=== PATIENT | female | born 1990 | race Caucasian/White ===

== ENCOUNTER 2017-04-12 13:32 | Emergency (ER) | payer BC ==
[2017-04-12 13:44] VITALS: BP 135/98
[2017-04-12] MEDS ORDERED: cefTRIAXone 1 GM, Lidocaine 1% 2.1 ML IM ONE ×2 (14:26)
--- NOTE | 2017-04-12 14:33 | EDM.PDOC ---
ED HPI GENERAL MEDICAL PROBLEM - General Chief Complaint: General Stated Complaint: MASTITIS (RT BREAST) Time Seen by Provider: 04/12/17 14:15 Source of Information: Reports: Patient History Limitations: Reports: No Limitations - History of Present Illness INITIAL COMMENTS - FREE TEXT/NARRATIVE: Patient presents today with complaints of right breast pain, redness and firmness since last night with fevers and chills. Sydnee reports she is currently using the breast pump for breast milk. Her daughter who is 3 months old, was premature and does not have a strong sucking reflex. Onset: Sudden Onset Date: 04/11/17 Quality: Reports: Ache, Dull Severity: Moderate Improves with: Reports: None Associated Symptoms: Reports: Fever/Chills, Malaise Treatments F[employer]: Reports: Acetaminophen, Other (see below) (She tried pumping. 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: Musculoskeletal History: Reports: Fracture Neurological History: Reports: Other (See Below) Other Neuro History: hx of fractured vertebrae - Past Surgical History Respiratory Surgical History: Reports: Other (See Below) Other Respiratory Surgeries/Procedures: chest tube Female Surgical History: Reports: Section Social & Family History - Tobacco Use Smoking Status *Q: Never Smoker - Recreational Drug Use Recreational Drug Use: No ED ROS GENERAL - Review of Systems Review Of Systems: See Below Constitutional: Reports: Fever, Chills, Malaise HEENT: Reports: No Symptoms Respiratory: Denies: Shortness of Breath, Cough, Sputum Cardiovascular: Denies: Dyspnea on Exertion, Edema, Lightheadedness, Palpitations, Syncope Endocrine: Reports: No Symptoms GI/Abdominal: Reports: No Symptoms : Reports: No Symptoms Skin: Reports: No Symptoms Neurological: Reports: Headache, Other (No delirium). Denies: Confusion, Dizziness, Numbness, Tingling, Difficulty Walking, Weakness, Gait Disturbance Psychiatric: Reports: No Symptoms Hematologic/Lymphatic: Reports: No Symptoms Immunologic: Reports: No Symptoms ED EXAM, GENERAL - Physical Exam Exam: See Below Free Text/Narrative:: Sydnee is a 26 year old female with acute onset right breast swelling, redness , warmth and pain. She is currently using a breast pump for her 3 month old daughter who was born premature. Exam Limited By: No Limitations General Appearance: Alert, WD/WN, No Apparent Distress, Mild Distress Eye Exam: Bilateral Eye: EOMI, PERRL Ears: Normal External Exam, Normal Canal, Hearing Grossly Normal, Normal TMs Ear Exam: Bilateral Ear: Auricle Normal, Canal Normal, TM normal Nose: Normal Inspection, Normal Mucosa, No Blood Throat/Mouth: Normal Inspection, Normal Lips, Normal Teeth, Normal Gums, Normal Oropharynx, Normal Voice, No Airway Compromise Head: Atraumatic, Normocephalic Neck: Normal Inspection, Supple, Non-Tender, Full Range of Motion Respiratory/Chest: No Respiratory Distress, Lungs Clear, Normal Breath Sounds, No Accessory Muscle Use, Chest Non-Tender Cardiovascular: Normal Peripheral Pulses, Regular Rate, Rhythm, No Edema, No Gallop, No Murmur, No Rub Peripheral Pulses: 2+: Radial (L), Radial (R), Dorsalis Pedis (L), Dorsalis Pedis (R) GI/Abdominal: Normal Bowel Sounds, Soft, Non-Tender, No Organomegaly, No Distention Back Exam: Normal Inspection, Full Range of Motion. No: CVA Tenderness (R), CVA Tenderness (L) Extremities: Normal Inspection, Normal Range of Motion, Non-Tender, No Pedal Edema, Normal Capillary Refill Neurological: Alert, Oriented, CN II-XII Intact, Normal Cognition, Normal Gait, No Motor/Sensory Deficits Psychiatric: Normal Affect, Normal Mood Skin Exam: Warm, Dry, Intact, Erythema, Other (redness to right lateral breast with firmness. No nipple discharge. ) Lymphatic: No Adenopathy Course - Vital Signs Last Recorded V/S: Last Vital Signs Temp 36.6 C 04/12/17 13:40 Pulse 93 04/12/17 13:40 Resp 16 04/12/17 13:40 BP 135/98 H 04/12/17 13:40 Pulse Ox 98 04/12/17 13:40 - Orders/Labs/Meds Meds: Medications Discontinued Medications Generic Name Dose Route Start Last Admin Trade Name Freq PRN Reason Stop Dose Admin Ceftriaxone Sodium 1 gm/ 0 gm 04/12/17 14:26 Lidocaine HCl 2.1 ml IM 04/12/17 14:27 ONETIME ONE Departure - Departure Time of Disposition: 14:43 Disposition: Home, Self-Care 01 Condition: Good Clinical Impression: Mastitis in female - Discharge Information Referrals: Sun Kumar PA [Primary Care Provider] - Forms: ED Department Discharge Additional Instructions: You have mastitis of the right breast. Keep yourself hydrated by drinking plenty of water. Use warm and cold compresses to the area multiple times a day and rest. It is best to pump up to 8 to 12 times a day as well as massage the area if you are able to do so. Take acetaminophen or ibuprofen for pain. You were given rocephin 1 gram IM in the ER. You can also take cephalexin 500mg by mouth four times a day for 10 days. Keep up the great work of pumping for you and your daughter!! If you feel things are not going as well as you like, a foreign law consultant may help. Return for worsening, issues or concerns. - Assessment/Plan Assessment:: Mastitis right breast. Plan: Keep hydrated by drinking plenty of water. Use warm and cold compresses to the area multiple times a day and rest. It is best to pump up to 8 to 12 times a day as well as massage the area if you are able to do so. Take acetaminophen or ibuprofen for pain. She was given rocephin 1 gram IM in the ER. She can also take cephalexin 500mg by mouth four times a day for 10 days. If use of breast pump/breast feeding are not going as well as she likes, a foreign law consultant may help. Return for worsening, issues or concerns.
== END 2017-04-12 15:07 | disposition home or self-care (01) ==
LOC: JP.ED 13:32
DX: N61.0 Mastitis without abscess (principal)
CPT/HCPCS: 96372; 99283; J0696

== ENCOUNTER 2019-01-16 16:43 | Emergency (ER) | payer BC ==
[2019-01-16 17:21] VITALS: BP 125/84
[2019-01-16] MEDS ORDERED: Lidocaine/EPINEPHrine/Tetracaine Soln 5 ML Each TOP ONE (18:14)
--- NOTE | 2019-01-16 18:21 | EDM.PDOC ---
ED HPI GENERAL MEDICAL PROBLEM - General Chief Complaint: Skin Complaint Stated Complaint: ABCESS Time Seen by Provider: 01/16/19 18:15 Source of Information: Reports: Patient History Limitations: Reports: No Limitations - History of Present Illness INITIAL COMMENTS - FREE TEXT/NARRATIVE: pt had a hairfollicle that got infected and she did pick at it some and she noted today that this got huge and swollen she has some definite drainage. Onset: Other (The area got alot worse today. ) Duration: Hour(s): Location: Reports: Upper Extremity, Right Associated Symptoms: Reports: No Other Symptoms Right Arm Pain Score (Numeric/FACES): 1 - Related Data Allergies Allergy/AdvReac Type Severity Reaction Status Date / Time No Known Allergies Allergy Verified 01/16/19 17:13 Home Meds: Home Meds NK [No Known Home Meds] 04/12/17 [History] Past Medical History Respiratory History: Reports: Pneumothorax [employer] History: Reports: Musculoskeletal History: Reports: Fracture Neurological History: Reports: Other (See Below) Other Neuro History: hx of fractured vertebrae - Infectious Disease History Infectious Disease History: Reports: Chicken Pox - Past Surgical History HEENT Surgical History: Reports: Tonsillectomy Respiratory Surgical History: Reports: Other (See Below) Other Respiratory Surgeries/Procedures: chest tube Female Surgical History: Reports: Section Social & Family History - Tobacco Use Smoking Status *Q: Never Smoker Second Hand Smoke Exposure: No - Caffeine Use Caffeine Use: Reports: Coffee, Tea - Recreational Drug Use Recreational Drug Use: No ED ROS GENERAL - Review of Systems Review Of Systems: See Below Constitutional: Reports: Chills HEENT: Reports: No Symptoms Respiratory: Reports: No Symptoms Cardiovascular: Reports: No Symptoms Endocrine: Reports: No Symptoms GI/Abdominal: Reports: No Symptoms : Reports: No Symptoms Musculoskeletal: Reports: No Symptoms Skin: Reports: No Symptoms ED EXAM, SKIN/RASH Exam: See Below Text/Narrative:: pt has a abcess on the left forearm dorsal aspect. This became very swollen today. Therer was alot of redness that developed around the abcess. Exam Limited By: No Limitations General Appearance: Alert, Moderate Distress Ears: Normal External Exam Nose: Normal Inspection Throat/Mouth: Normal Inspection Extremities: Other ( rt forearm has a large swollen abcess on the dorsal aspect off the rt forearm. This has come to a head and it is draining some. There is alot of redness arouind the site. ) Course - Vital Signs Last Recorded V/S: Last Vital Signs Temp 35.9 C 01/16/19 17:18 Pulse 78 01/16/19 17:18 Resp 16 01/16/19 17:18 BP 125/84 01/16/19 17:18 Pulse Ox 98 01/16/19 17:18 - Orders/Labs/Meds Meds: Medications Discontinued Medications Generic Name Dose Route Start Last Admin Trade Name Taya PRN Reason Stop Dose Admin Ceftriaxone Sodium 1 gm/ 0 gm 01/16/19 18:49 01/16/19 19:01 Lidocaine HCl 2.1 ml IM 01/16/19 18:50 1 inj ONETIME ONE Administration Lidocaine/Tetracaine 5 ml 01/16/19 18:14 01/16/19 18:22 Let Soln TOP 01/16/19 18:15 5 ml ONETIME ONE Administration - Re-Assessments/Exams Free Text/Narrative Re-Assessment/Exam: 01/16/19 18:50 let was applied to the wound. It was opened and a large amount of pus was expressed . A culture was obtained. The wound was packed with 1/4 inch iodoform gauze. a drwssing was applied. Departure - Departure Time of Disposition: 18:51 Disposition: Home, Self-Care 01 Condition: Fair Clinical Impression: Abscess of right arm - Discharge Information Instructions: Skin Abscess Referrals: PCP,None [Primary Care Provider] - Forms: ED Department Discharge Care Plan Goals: to urgent care tomorrow for repacking the wouind with iodoform guaze. She will take the gauze with her. elevate the arm, she will be notified of the culture. keflex 500mg tid for 10 days. 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 Use yogurt and probiotic to maintain bowel lisa. tylenol and motrin for pain.
[2019-01-16] MEDS ORDERED: cefTRIAXone 1 GM, Lidocaine 1% 2.1 ML IM ONE ×2 (18:49)
== END 2019-01-16 19:13 | disposition home or self-care (01) ==
LOC: JP.ED 16:43
DX: L02.413 Cutaneous abscess of right upper limb (principal)
CPT/HCPCS: 10060; 87070; 87205; 96372; 99282; A9270; J0696; J2001; 87077; 87186

== ENCOUNTER 2023-05-30 14:31 | Emergency (ER) | payer MEDICAID, OTHER ==
[2023-05-30] MEDS ORDERED: Bacitracin Oint 1 GM U/D Packet TOP ONE (15:53)
[2023-05-30] MEDS ORDERED: Lidocaine 1% with EPINEPHrine 1:100,000 50 ML MDV INFILT ONE (15:53)
[2023-05-30 19:28] VITALS: BP 147/92; PULSE 82
== END 2023-05-30 16:48 | disposition home or self-care (01) ==
LOC: JP.ED 14:31
DX: S61.411A Laceration without foreign body of right hand, initial encounter (principal); W26.0XXA Contact with knife, initial encounter
CPT/HCPCS: 12002; 99282